=== PATIENT | male | born 1965 | race Caucasian/White ===

== ENCOUNTER → 2016-08-09 | Outpatient (CLI) | payer OTHER ==
[~2016-08-09] MED LIST: ASCA500 PO; CLRD24 PO; HYDR12.55 PO; LISI-461 PO; MULT-513 PO; POTA8CAP6 PO; ZINC1CAP PO
--- NOTE | 2016-08-09 12:55 | DIAGNOSTIC IMAGING REPORT ---
CHEST 2 VIEWS ROUTINE CLINICAL HISTORY: Sinus infection. Cough. COMPARISON STUDY: No previous studies for comparison. FINDINGS: Lung volumes are normal. No consolidation is identified. There is no pneumothorax or pleural effusion. Cardiac size is normal. Mediastinal contours are normal. There is no evidence of pulmonary edema. IMPRESSION: No acute cardiopulmonary findings. Electronically signed by: Jerome Mohan M.D. 08/09/2016 12:54 PM Dictated Date/Time: 08/09/2016 12:54 PM
== END | disposition home or self-care (01) ==
LOC: C.RAD 12:23
PROVIDERS: ATTEND Family Medicine
DX: R05 Cough (principal)

== ENCOUNTER → 2016-10-16 | Outpatient (CLI) | payer OTHER ==
[~2016-10-16] MED LIST changes: +GADAVIST IV PRN
--- NOTE | 2016-10-16 14:57 | DIAGNOSTIC IMAGING REPORT ---
Brain and internal auditory canal MRI WITH AND WITHOUT CONTRAST HISTORY: Headache,SENSORY NEURAL HEARING LOSS TECHNIQUE: Multiplanar multisequence MRI of the brain and internal auditory canal was performed both before and after the intravenous administration of contrast. COMPARISON STUDY: Head CT 07/06/2016. FINDINGS: There are no areas of restricted diffusion to suggest acute infarction. The midline structures are intact. The paranasal sinuses are clear. The mastoid air cells are clear. The ventricles and sulci are within normal limits for age. There is no hematoma or midline shift. The major vascular flow-voids at the skull base are well maintained. No abnormal enhancement within the brain parenchyma. No masses or abnormal enhancement within the left internal auditory canal. There is a 3 mm enhancing nodule deep within the right internal auditory canal. IMPRESSION: 1. No acute intracranial abnormality. 2. A 3 mm enhancing nodule deep within the right internal auditory canal. This is consistent with a vestibular schwannoma. 4. Normal left internal auditory canal. Electronically signed by: Ryne Ceja M.D. 10/16/2016 2:55 PM Dictated Date/Time: 10/16/2016 2:44 PM
== END | disposition home or self-care (01) ==
LOC: C.OPENMRI 12:16
PROVIDERS: ATTEND Physician Assistant Medical
DX: R51 Headache (principal); H90.5 Unspecified sensorineural hearing loss

== ENCOUNTER → 2017-05-04 | Outpatient (CLI) | payer OTHER ==
--- NOTE | 2017-05-04 13:23 | DIAGNOSTIC IMAGING REPORT ---
Brain MRI WITH AND WITHOUT CONTRAST HISTORY: IAC, ACOUSTIC NEUROMA TECHNIQUE: Multiplanar multisequence MRI of the brain was performed both before and after the intravenous administration of contrast. COMPARISON STUDY: Brain MRI 10/16/2016. FINDINGS: There are no areas of restricted diffusion to suggest acute infarction. The midline structures are intact. The paranasal sinuses are clear. The mastoid air cells are clear. The ventricles and sulci are within normal limits for age. There is no hematoma or midline shift. The major vascular flow-voids at the skull base are well maintained. No abnormal enhancement within the brain parenchyma. No masses or abnormal enhancement within the left internal auditory canal. There is a 3 mm enhancing nodule deep within the right internal auditory canal. IMPRESSION: 1. No acute intracranial abnormality. 2. A 3 mm enhancing nodule deep within the right internal auditory canal. This is consistent with a vestibular schwannoma and remains unchanged. 4. Normal left internal auditory canal. Electronically signed by: Ryne Ceja M.D. 05/04/2017 1:22 PM Dictated Date/Time: 05/04/2017 1:19 PM
== END | disposition home or self-care (01) ==
LOC: C.MRIBC 11:24
PROVIDERS: ATTEND Otolaryngology
DX: D33.3 Benign neoplasm of cranial nerves (principal)

== ENCOUNTER 2017-09-08 12:31 | Emergency (ER) | payer OTHER ==
[~2017-09-08] VITALS: Ht 190.5 cm; Wt 133.9 kg
[~2017-09-08 12:31] MED LIST changes: -GADAVIST IV PRN
[2017-09-08 12:40] VITALS: Ht 190.5 cm; Wt 133.9 kg
--- NOTE | 2017-09-08 13:05 | DIAGNOSTIC IMAGING REPORT ---
L HAND MIN 3 VIEWS ROUTINE CLINICAL HISTORY: L ring finger pain and swelling pain. Edema. COMPARISON: None. DISCUSSION: Oblique fracture base fourth metacarpal. Dislocation fourth proximal interphalangeal joint. Metallic pellet ventral to the third metacarpal. Moderate degenerative change of all remaining osseous structures. Moderate soft tissue edema. IMPRESSION: 1. Oblique slightly distracted fracture base fourth metacarpal. 2. Dislocation proximal interphalangeal joint fourth finger. 3. Metallic pellet within the soft tissues ventral to the third metacarpal. The above report was generated using voice recognition software. It may contain grammatical, syntax or spelling errors. Electronically signed by: Heri Beltran M.D. 09/08/2017 1:04 PM Dictated Date/Time: 09/08/2017 1:02 PM
[2017-09-08] MEDS ORDERED: GLUCTAB18 PO (13:09)
[2017-09-08] MEDS ORDERED: XYLOCAINE 1%/SOD BICARB 20 ML VIAL INFIL ONE (13:15)
--- NOTE | 2017-09-08 13:25 | EMERGENCY ROOM VISIT NOTE ---
ED Visit Note Patient was seen and evaluated by Zacarias Moy PA-C. I was asked to reduce his a left fourth digit PIP dislocation with digital block anesthetization. Risks and benefits of performing anesthetization and dislocation reduction discussed with the patient who verbalizes understanding. Verbal consent was obtained prior to performing the procedure. 5 cc of 1% buffered lidocaine was used to anesthetize the left third digit via digital block technique after thorough cleansing with Betadine. Left fourth digit was then reduced without difficulty. Patient tolerated the procedure well. No complications were met. Please refer to for the documentation by Zacarias regarding his stay.
--- NOTE | 2017-09-08 14:01 | DIAGNOSTIC IMAGING REPORT ---
L HAND MIN 3 VIEWS ROUTINE CLINICAL HISTORY: L PIP jt post reduction COMPARISON: Same date DISCUSSION: Anatomic alignment status post closed reduction of the proximal interphalangeal joint fourth finger. Tiny avulsion from the base of the middle phalanx. Moderate soft tissue edematous change. Slight increase in impaction of an oblique fracture proximal fourth metacarpal. Metallic pellet Within the soft tissues is again noted. 1. IMPRESSION: 1. Anatomic alignment post closed reduction proximal interphalangeal joint left fourth finger. 2. Tiny avulsion base middle phalanx left fourth finger. 3. Slight increase in impaction fracture base first metacarpal. The above report was generated using voice recognition software. It may contain grammatical, syntax or spelling errors. Electronically signed by: Heri Beltran M.D. 09/08/2017 2:00 PM Dictated Date/Time: 09/08/2017 1:58 PM
[2017-09-08] MEDS ORDERED: HYDR-5688 PO (14:10)
[2017-09-08 14:33] VITALS: BP 155/77; PULSE 81; TEMP 37; O2SAT 95
--- NOTE | 2017-09-09 10:25 | EMERGENCY ROOM VISIT NOTE ---
ED Visit Note First contact with patient: 12:34 Chief Complaint: Left ring finger pain. History of Present Illness: Mr. Szymanski is a 52-year-old white male who ambulates into the ED complaining of left ring finger pain. Patient reports approximately 1-2 hours before he arrived in the emergency department he was working around his house cutting down tree limbs. He reports one of the tree limb started falling towards him and he pushed it away with his left hand injuring the ring finger. Currently he is complaining of pain over the ring finger DIP joint and the metacarpal. He describes his pain as a sharp and achy sensation in both locations. He rates his discomfort 9/10. Pain is nonradiating. Pain worsens with palpation and flexion and extension of the ring finger at the DIP joint. He has taken 600 mg of ibuprofen prior to arrival at the hospital and reports significant increase improvement of his pain. He denies any associated symptoms including forearm pain, wrist pain, other finger pain, hand weakness/numbness/tingling. Additionally he denies any previous significant injuries or surgeries to the hand or fingers. Review of Systems: As noted above in history of present illness. Past Medical History: Hypertension. Current Medications: Zinc sulfate, vitamin C, Claritin-D, Zestril, hydrochlorothiazide, potassium chloride and glucosamine/chondroitin. Allergies to Medications: Penicillin. Social History: Patient is currently employed; he feels safe in his home environment; he denies tobacco and alcohol use. Physical Examination: Vital Signs: Date Time Temp Pulse Resp B/P (MAP) Pulse Ox O2 Delivery O2 Flow Rate FiO2 09/08/17 14:33 37.0 81 20 155/77 95 09/08/17 14:20 81 20 155/77 95 Room Air 09/08/17 12:40 37.0 79 20 172/77 95 Room Air GENERAL: 52-year-old male in mild distress due to pain, nontoxic-appearing, afebrile and hemodynamically stable. NEUROLOGICAL: Awake, alert and oriented to person, place and time. Answering questions appropriately and following commands. SKIN: Warm, dry and pink. No soft tissue open trauma noted. LEFT HAND: Deformity at the fourth DIP joint with mild swelling and ecchymosis. No tenderness in the forearm, wrist. Moderate tenderness with bony crepitus at the fourth metacarpal. No gross bony deformity. Dislocation of the PIP joint of the fourth finger. No other hand or finger pain. Throughout the ring finger the skin was warm and pink, capillary refill is brisk and he had intact light sensation to all aspects of the ring finger. ED Course: Patient is assessed as noted above. Patient's medication list was reviewed. Patient was offered pain medication and refused. Left hand x-rays: Were read by myself and the radiologist showing a an oblique slightly distracted fracture of the base of the fourth metacarpal, dislocation of the PIP joint of the fourth finger and a metallic pellet in the soft tissues in the area of the third metacarpal; I did question the patient about the foreign body and he knew about that from a previous injury. Patient's dislocation was reduced by Brock Villarreal PA-C; please see his notes on this reduction. Left Hand X-Rays: Were read by myself and the radiologist and shows anatomic alignment post reduction of the PIP joint with a tiny avulsion at the base of the middle phalanx of the fourth finger and a slight increase in impaction fracture at the base of the fifth metacarpal. Patient's hand was placed in a ulnar gutter splint to stabilize his fracture and previous dislocation. Patient was educated about today's findings and instructed on his treatment plan ; he verbalized understanding and agreement with this plan. Clinical Impression: Fracture of the left fourth metacarpal. Left ring finger PIP joint dislocation. Disposition: Patient discharged to home in stable condition; prior to departure he was reassessed and subjectively reported he was feeling better and rated his discomfort 6/10. Plan: Comfort measures were discussed with the patient including a sliding pain medication scale of ibuprofen, acetaminophen and Rover; his name was checked in the state database and no red flags were noted and he was given appropriate narcotics. Other comfort measures including ice use, splint use were discussed with the patient. Patient was encouraged to follow-up with customer care specialist for definitive care and treatment. Patient is encouraged to return the ED for worsening/uncontrolled pain, uncontrolled swelling, hands/finger weakness/numbness/tingling or any new/ concerning symptoms.
== END 2017-09-08 14:34 | disposition home or self-care (01) ==
LOC: C.EDB 12:32 → C.EDD 14:34
DX: S62.315A Displaced fracture of base of fourth metacarpal bone, left hand, initial encounter for closed fracture (principal); S63.285A Dislocation of proximal interphalangeal joint of left ring finger, initial encounter; W22.8XXA Striking against or struck by other objects, initial encounter; Y92.017 Garden or yard in single-family (private) house as the place of occurrence of the external cause; I10 Essential (primary) hypertension; Z79.899 Other long term (current) drug therapy; Z88.0 Allergy status to penicillin

== ENCOUNTER 2022-12-20 10:59 | Observation (INO) ==
--- NOTE | 2022-12-20 11:18 | Emergency Department Note ---
History of Present Illness General Chief complaint: Abnormal Labs/Diagnostic Testing Stated complaint: SWEATING,DOC REF,ABNORMAL EKG Time Seen by Provider: 12/20/22 11:07 History of Present Illness Maximum Pain Intensity: 4 This is a 57-year-old male with a history of atrial fibrillation currently anticoagulated on Xarelto that presents to the emergency department via private vehicle with complaints of "sweating, Referred, abnormal EKG". Patient notes that last Sunday, about 5 days ago he thought perhaps he had shingles. He went to be evaluated by his PCP at the [facility] in [place]. He notes that he was informed it was not shingles. Patient notes the rash was bilateral on the flanks and just inferior to the axilla. Patient then noted that was followed by feeling unwell, headache, backaches, pain in the ribs where the rash was located. He feels as though he has not been sleeping well even though he has. He feels as though he has some sort of "bug". Patient notes that the pain and rash has resolved. He did present to an urgent care today and had an ab normal EKG and was referred here for further evaluation and management. He denies any chest pain or shortness of breath. No nausea or vomiting. No diarrhea. Patient denies any change of symptoms with exertion. Patient however notes that every morning since the onset about a week ago he notes that he is sweating through his work short by 9 AM every day which is new for him. He denies any fever. No trauma or injury. Home Medications Medication Instructions Recorded Confirmed Type Zinc Tab 30 mg PO DAILY 12/20/22 12/20/22 History ascorbic acid (vitamin C) 100 mg 200 mg PO DAILY 12/20/22 12/20/22 History tablet (Vitamin C) calcium carbonate 500 mg-vitamin 1 tab PO DAILY 12/20/22 12/20/22 History D3 5 mcg (200 unit) tablet (Calcium 500 + D) furosemide 20 mg tablet 40 mg PO DAILY 12/20/22 12/20/22 History glucosamine-chondroitin 250 mg-200 1 tab PO HS 12/20/22 12/20/22 History mg tablet (Osteo Bi-Flex) lisinopril 20 mg tablet 20 mg PO DAILY 12/20/22 12/20/22 History loratadine 10 mg tablet (Claritin) 10 mg PO DAILY PRN .allergies 12/20/22 12/20/22 History potassium 99 mg tablet 99 mg PO AMHS 12/20/22 12/20/22 History rivaroxaban 20 mg tablet (Xarelto) 20 mg PO DAILY 12/20/22 12/20/22 History sotalol 120 mg tablet 120 mg PO BID 12/20/22 12/20/22 History spironolactone 25 mg tablet 25 mg PO QAM 12/20/22 12/20/22 History vitamin B complex 1 tab PO DAILY 12/20/22 12/20/22 History vitamin E 268 mg (400 unit) capsule 400 mg PO DAILY 12/20/22 12/20/22 History Allergies Allergy/AdvReac Type Severity Reaction Status Date / Time Penicillins AdvReac Mild URINARY Verified 12/20/22 13:38 RETENTION/CONSTIPATION cefdinir AdvReac Diarrhea Verified 12/20/22 13:38 Past Med/Surg History Medical History Atrial fibrillation Hypertension Nonischemic cardiomyopathy Sensorineural hearing loss of both ears Surgical History H/O abdominal surgery H/O arthroscopy of right knee Family History Other Cancer Diabetes Social History Smoking Status: Never smoker Second Hand Exposure: No; Do You Dip or Chew Tobacco: No; Tobacco Cessation Education Requested by Patient: No Hx Alcohol Use: No Hx Substance Use: No Preferred Language: Luxembourgish Communication Ability: Effective 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 Required: No Beliefs That Will Affect Care: None Current Living Situation: Alone 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 Other Information That Helps Us Care for You: No Feels Safe at Home: Yes Safety Concerns: Feels Safe At This Time Assistive Devices: None Review of Systems A total of 10 systems reviewed and were otherwise negative Physical Exam Vital Signs Vital Signs - 24 hr 12/20/22 11:00 12/20/22 12:12 12/20/22 12:05 Temperature 36.6 C Temperature Source Temporal Artery Scan Pulse Rate 76 Pulse Rate [Apical] 138 H 113 H Pulse Rhythm [Apical] Regular Regular Respiratory Rate 20 18 18 Respiratory Effort / Characteristics Non-Labored Non-Labored Spontaneous Non-Labored Spontaneous Respiratory Depth Normal Normal Normal Respiratory Pattern Regular Blood Pressure 130/75 Blood Pressure [Right Arm] 125/96 Blood Pressure Mean 93 Blood Pressure Mean [Right Arm] 105 Blood Pressure Position [Right Arm] Lying Pulse Oximetry 99 98 98 Oxygen Delivery Method Room Air Room Air Room Air Sepsis Recent Fever Within 48 Hours No Sepsis New/Unexplained Change in Mental Status No Sepsis Action Taken by Nursing No Action Required End Tidal CO2 (18-54mmHg) 12/20/22 12:32 12/20/22 12:41 12/20/22 13:33 Temperature Temperature Source Pulse Rate 86 Pulse Rate [Apical] 115 H Pulse Rhythm [Apical] Regular Respiratory Rate 18 Respiratory Effort / Characteristics Non-Labored Spontaneous Respiratory Depth Normal Respiratory Pattern Regular Blood Pressure Blood Pressure [Right Arm] 121/80 Blood Pressure Mean Blood Pressure Mean [Right Arm] 93 Blood Pressure Position [Right Arm] Lying Pulse Oximetry 99 Oxygen Delivery Method Room Air Room Air Sepsis Recent Fever Within 48 Hours Sepsis New/Unexplained Change in Mental Status Sepsis Action Taken by Nursing End Tidal CO2 (18-54mmHg) 12/20/22 15:12 12/20/22 15:15 12/20/22 15:20 Temperature Temperature Source Pulse Rate Pulse Rate [Apical] 127 H 130 H 6 L Pulse Rhythm [Apical] Respiratory Rate 18 18 16 Respiratory Effort / Characteristics Respiratory Depth Respiratory Pattern Blood Pressure Blood Pressure [Right Arm] 140/78 129/68 114/67 Blood Pressure Mean Blood Pressure Mean [Right Arm] 98 88 82 Blood Pressure Position [Right Arm] Pulse Oximetry 96 98 99 Oxygen Delivery Method Room Air Room Air Room Air Sepsis Recent Fever Within 48 Hours Sepsis New/Unexplained Change in Mental Status Sepsis Action Taken by Nursing End Tidal CO2 (18-54mmHg) 12/20/22 15:25 12/20/22 15:30 12/20/22 15:40 Temperature Temperature Source Pulse Rate Pulse Rate [Apical] 69 67 69 Pulse Rhythm [Apical] Respiratory Rate 18 18 20 Respiratory Effort / Characteristics Non-Labored Non-Labored Respiratory Depth Normal Normal Respiratory Pattern Blood Pressure Blood Pressure [Right Arm] 111/63 114/73 110/64 Blood Pressure Mean Blood Pressure Mean [Right Arm] 79 86 79 Blood Pressure Position [Right Arm] Pulse Oximetry 96 98 95 Oxygen Delivery Method Room Air Room Air Room Air Sepsis Recent Fever Within 48 Hours Sepsis New/Unexplained Change in Mental Status Sepsis Action Taken by Nursing End Tidal CO2 (18-54mmHg) 28 29 12/20/22 15:45 12/20/22 16:00 12/20/22 15:29 Temperature Temperature Source Pulse Rate 68 Pulse Rate [Apical] 68 69 Pulse Rhythm [Apical] Respiratory Rate 17 18 Respiratory Effort / Characteristics Non-Labored Respiratory Depth Normal Respiratory Pattern Blood Pressure Blood Pressure [Right Arm] 111/67 123/75 Blood Pressure Mean Blood Pressure Mean [Right Arm] 81 91 Blood Pressure Position [Right Arm] Pulse Oximetry 96 97 Oxygen Delivery Method Room Air Room Air Sepsis Recent Fever Within 48 Hours Sepsis New/Unexplained Change in Mental Status Sepsis Action Taken by Nursing End Tidal CO2 (18-54mmHg) VITAL SIGNS - Vital signs and nursing notes were reviewed. Stable and afebrile. GENERAL -57-year-old male appearing his stated age who is in no acute distress. Communicates well with provider and answers questions appropriately. SKIN - Without rashes. No meningeal or petechial rash. HEAD - NC/AT. EYES - PERRL with EOMI bilaterally. Sclera anicteric. EARS - No deformities of external structures noted on gross examination bilaterally. NOSE - Midline and without cyanosis. No epistaxis or purulent drainage noted. Septum midline without deviation or septal hematoma noted. MOUTH/OROPHARYNX - Without perioral cyanosis. Buccal mucosa pink and moist and without leukoplakia. Tongue midline with equal elevation of palate bilaterally. No tonsillar hypertrophy, erythema, or exudates noted. Good dentition noted. NECK - Neck with FROM. Supple to palpation. No lymphadenopathy noted. No nuchal rigidity. LUNGS - Chest wall symmetric without accessory muscle use, intercostals retractions, or central cyanosis. Normal vesicular breath sounds CTA B/L. No wheezes, rales, or rhonchi appreciated. CARDIAC - RRR with S1/S2. No murmur, rubs, or gallops appreciated. ABDOMEN - Abdominal contour normal without pulsations or visible masses. BS normoactive all four quadrants. No tenderness, palpable masses, hepatosplenomegaly, or ascites noted. EXTREMITIES - No clubbing or peripheral cyanosis. +5/5 strength noted in UE/LE bilaterally. NEUROLOGIC - Cranial nerves II through XII grossly intact. PSYCH - A&Ox3 and cooperates fully with examiner. Pt is very pleasant and interacts well with examiner. Course Administered Medications Sotalol HCl (Sotalol Hcl 80 Mg Tab) 120 mg PO BID VALERIA Stop: 01/19/23 20:59 Last Admin: 12/20/22 19:46 Dose: 120 mg Documented By: TNK Discontinued Medications Diltiazem HCl (Diltiazem Hcl 5 Mg/Ml 5 Ml Vial) Confirm Administered Dose 25 mg IV .STK-MED ONE Stop: 12/20/22 12:09 Last Admin: 12/20/22 12:17 Dose: Not Given Documented By: RAÚL Diltiazem HCl (Diltiazem Hcl 5 Mg/Ml 5 Ml Vial) 20 mg IV NOW STA Stop: 12/20/22 12:11 Last Admin: 12/20/22 12:16 Dose: 20 mg Documented By: RAÚL Co-signed By: LAURA Diltiazem HCl 125 mg/ Dextrose 125 mls @ 5 mls/hr IV .Q24H [facility]; Protocol Stop: 01/19/23 12:14 Last Admin: 12/20/22 15:30 Dose: Not Given Documented By: BRIA Propofol (Diprivan) 7 mls @ 7 mls/min IV NOW STA Stop: 12/20/22 15:23 Last Admin: 12/20/22 15:13 Dose: 7 mls/min Documented By: MARLINE Co-signed By: RJ Miscellaneous (Stat Iv Infusion Titration Per Protocol) 1 each N/A NOW STA Stop: 12/20/22 12:13 Last Admin: 12/20/22 15:30 Dose: Not Given Documented By: BRIA Propofol (Propofol Iv Emulsion 10 Mg/Ml 20 Ml Vial) Confirm Administered Dose 400 mg IV .STK-MED ONE Stop: 12/20/22 15:00 Last Admin: 12/20/22 16:40 Dose: Not Given Documented By: KENDALL Medical Decision Making Laboratory Data 12/20/22 11:53 12/20/22 11:53 Lab Results 12/20/22 12/20/22 12/20/22 Range/Units 11:53 11:53 11:53 WBC 5.17 (4.8-10.8) K/ul RBC 5.09 (4.70-6.10) M/uL Hgb 14.0 (14.0-18.0) g/dl Hct 41.2 L (42.0-52.0) % MCV 80.9 (80.0-100.0) fL MCH 27.5 (25.0-34.0) pg MCHC 34.0 (32.0-36.0) g/dL RDW Std Deviation 36.9 (36.4-46.3) fL RDW Coeff of Vijay 12.5 (11.5-14.5) % Plt Count 137 (130-400) K/uL MPV 12.3 (9.4-12.4) fL Neutrophils % (Manual) 52 % Lymphocytes % (Manual) 26 % Reactive Lymphs % (Man) 16 % Monocytes % (Manual) 1 % Eosinophils % (Manual) 3 % Basophils % (Manual) 2 % Metamyelocytes % (Man) 1 % Neutrophils # (Manual) 2.69 (1.40-6.50) K/uL Total Absolute Neuts 2.69 (1.4-6.5) K/uL Lymphocytes # (Manual) 1.34 (1.2-3.4) K/uL Reactive Lymphs # 0.83 K/uL Total Abs Lymphocytes 2.17 (1.2-3.4) K/uL Monocytes # (Manual) 0.05 L (0.11-0.59) K/uL Eosinophils # (Manual) 0.16 (0-0.50) K/uL Basophils # (Manual) 0.10 (0-0.2) K/uL Metamyelocytes # (Man) 0.05 H (0-0) K/uL Ovalocytes 1+ PT (9.0-12.0) Seconds INR (0.9-1.1) APTT (21.0-31.0) Seconds PTT Ratio Sodium (136-145) mmol/L Potassium (3.5-5.1) mmol/L Chloride (98-107) mmol/L Carbon Dioxide (21-32) mmol/L Anion Gap (3-11) BUN (6-23) mg/dl Creatinine (0.6-1.4) mg/dl Est Cr Clr Drug Dosing ml/min Est GFR ( Amer) ml/min Est GFR (Non-Af Amer) ml/min BUN/Creatinine Ratio (10-20) Glucose (70-99(Fasting)) mg/dl Lactate 1.4 (0.4-2.0) mmol/L Calcium (8.6-10.3) mg/dl Magnesium (1.7-2.4) mg/dl Total Bilirubin (0.2-1.0) mg/dl AST (13-39) U/L ALT (7-52) U/L Alkaline Phosphatase (34-104) U/L Troponin I High Sens (0-20) pg/ml Total Protein (6.0-8.3) gm/dl Albumin (3.4-5.0) gm/dl Globulin (2.5-4.0) gm/dl Albumin/Globulin Ratio (0.9-2) Procalcitonin 0.07 (0-0.5) ng/ml TSH (0.300-4.500) uIu/ml Anaplasma Smear See Comment Babesia Smear See Comment Lyme Disease IgG Ab Negative (Negative) Lyme Disease IgM Ab Equivocal A (Negative) SARS-CoV-2, RNA, NAAT (NEGATIVE) 12/20/22 12/20/22 12/20/22 Range/Units 11:53 11:53 11:53 WBC (4.8-10.8) K/ul RBC (4.70-6.10) M/uL Hgb (14.0-18.0) g/dl Hct (42.0-52.0) % MCV (80.0-100.0) fL MCH (25.0-34.0) pg MCHC (32.0-36.0) g/dL RDW Std Deviation (36.4-46.3) fL RDW Coeff of Vijay (11.5-14.5) % Plt Count (130-400) K/uL MPV (9.4-12.4) fL Neutrophils % (Manual) % Lymphocytes % (Manual) % Reactive Lymphs % (Man) % Monocytes % (Manual) % Eosinophils % (Manual) % Basophils % (Manual) % Metamyelocytes % (Man) % Neutrophils # (Manual) (1.40-6.50) K/uL Total Absolute Neuts (1.4-6.5) K/uL Lymphocytes # (Manual) (1.2-3.4) K/uL Reactive Lymphs # K/uL Total Abs Lymphocytes (1.2-3.4) K/uL Monocytes # (Manual) (0.11-0.59) K/uL Eosinophils # (Manual) (0-0.50) K/uL Basophils # (Manual) (0-0.2) K/uL Metamyelocytes # (Man) (0-0) K/uL Ovalocytes PT 13.9 H (9.0-12.0) Seconds INR 1.3 H (0.9-1.1) APTT 29.9 (21.0-31.0) Seconds PTT Ratio 1.1 Sodium 137 (136-145) mmol/L Potassium 3.7 (3.5-5.1) mmol/L Chloride 105 (98-107) mmol/L Carbon Dioxide 25 (21-32) mmol/L Anion Gap 7 (3-11) BUN 22 (6-23) mg/dl Creatinine 0.77 (0.6-1.4) mg/dl Est Cr Clr Drug Dosing 147.3 ml/min Est GFR ( Amer) 118.4 ml/min Est GFR (Non-Af Amer) 102.2 ml/min BUN/Creatinine Ratio 28.6 H (10-20) Glucose 103 H (70-99(Fasting)) mg/dl Lactate (0.4-2.0) mmol/L Calcium 8.9 (8.6-10.3) mg/dl Magnesium 2.0 (1.7-2.4) mg/dl Total Bilirubin 0.8 (0.2-1.0) mg/dl AST 38 (13-39) U/L ALT 47 (7-52) U/L Alkaline Phosphatase 44 (34-104) U/L Troponin I High Sens 19.1 (0-20) pg/ml Total Protein 6.4 (6.0-8.3) gm/dl Albumin 3.7 (3.4-5.0) gm/dl Globulin 2.7 (2.5-4.0) gm/dl Albumin/Globulin Ratio 1.4 (0.9-2) Procalcitonin (0-0.5) ng/ml TSH 0.767 (0.300-4.500) uIu/ml Anaplasma Smear Babesia Smear Lyme Disease IgG Ab (Negative) Lyme Disease IgM Ab (Negative) SARS-CoV-2, RNA, NAAT (NEGATIVE) 12/20/22 Range/Units 13:32 WBC (4.8-10.8) K/ul RBC (4.70-6.10) M/uL Hgb (14.0-18.0) g/dl Hct (42.0-52.0) % MCV (80.0-100.0) fL MCH (25.0-34.0) pg MCHC (32.0-36.0) g/dL RDW Std Deviation (36.4-46.3) fL RDW Coeff of Ivjay (11.5-14.5) % Plt Count (130-400) K/uL MPV (9.4-12.4) fL Neutrophils % (Manual) % Lymphocytes % (Manual) % Reactive Lymphs % (Man) % Monocytes % (Manual) % Eosinophils % (Manual) % Basophils % (Manual) % Metamyelocytes % (Man) % Neutrophils # (Manual) (1.40-6.50) K/uL Total Absolute Neuts (1.4-6.5) K/uL Lymphocytes # (Manual) (1.2-3.4) K/uL Reactive Lymphs # K/uL Total Abs Lymphocytes (1.2-3.4) K/uL Monocytes # (Manual) (0.11-0.59) K/uL Eosinophils # (Manual) (0-0.50) K/uL Basophils # (Manual) (0-0.2) K/uL Metamyelocytes # (Man) (0-0) K/uL Ovalocytes PT (9.0-12.0) Seconds INR (0.9-1.1) APTT (21.0-31.0) Seconds PTT Ratio Sodium (136-145) mmol/L Potassium (3.5-5.1) mmol/L Chloride (98-107) mmol/L Carbon Dioxide (21-32) mmol/L Anion Gap (3-11) BUN (6-23) mg/dl Creatinine (0.6-1.4) mg/dl Est Cr Clr Drug Dosing ml/min Est GFR ( Amer) ml/min Est GFR (Non-Af Amer) ml/min BUN/Creatinine Ratio (10-20) Glucose (70-99(Fasting)) mg/dl Lactate (0.4-2.0) mmol/L Calcium (8.6-10.3) mg/dl Magnesium (1.7-2.4) mg/dl Total Bilirubin (0.2-1.0) mg/dl AST (13-39) U/L ALT (7-52) U/L Alkaline Phosphatase (34-104) U/L Troponin I High Sens (0-20) pg/ml Total Protein (6.0-8.3) gm/dl Albumin (3.4-5.0) gm/dl Globulin (2.5-4.0) gm/dl Albumin/Globulin Ratio (0.9-2) Procalcitonin (0-0.5) ng/ml TSH (0.300-4.500) uIu/ml Anaplasma Smear Babesia Smear Lyme Disease IgG Ab (Negative) Lyme Disease IgM Ab (Negative) SARS-CoV-2, RNA, NAAT NEGATIVE (NEGATIVE) Imaging Data Radiologist's Impression: Chest X-Ray 12/20/22 11:10 SINGLE VIEW CHEST CLINICAL HISTORY: Headache. Diaphoresis. Atypical chest pain. Back pain. FINDINGS: 2 AP, portable, upright chest radiographs are compared to study dated 08/09/2016. The heart is enlarged. The pulmonary vasculature is noncongested. The lungs and pleural spaces are clear noting mild dependent atelectasis. No pneumothorax is seen. The bony thorax is grossly intact. IMPRESSION: Cardiomegaly with no acute cardiopulmonary abnormality. ACT 112: Negative or not required by law. Electronically signed by: Hal Wolf M.D. 12/20/2022 11:37 AM [facility] Narrative Patient was seen and evaluated as above in room A03. Review was performed of triage nursing notes and vital signs. After obtaining a thorough history and physical examination the above work up was performed. Patient presents to us today for evaluation of diaphoresis and abnormal EKG prehospital. Patient clinically well-appearing and nontoxic on examination but was found to be ta chycardic. Options of care were discussed with the patient. IV access was established. Labs were drawn. EKG was obtained. Initial EKG performed at 12:13 PM revealed A-fib with RVR at a rate of 103 bpm. Patient's heart rate then began to trend upward and was in the 130-140 range. I discussed the case with attending physician that presented to the bedside. Decision was made to provide 20 mg of IV Cardizem. Heart rate began to improve and was no longer at such an elevated rate. Chest x-ray reveals cardiomegaly. Labs reveal no leukocytosis or concerning anemia. No emergent metabolic disturbance. Troponin within normal range. INR elevated 1.3. Glucose mildly elevated at 103. Procalcitonin within normal range. TSH reveals euthyroid state. Urinalysis reveals some ketones but no evidence of infection. Lyme IgM equivocal with Western blot pending. Anaplasma smear negative. Anaplasma send out test pending. COVID test negative. With the patient having diaphoresis as well as back pain, neck/head pain I do believe that further evaluation in the hospital is reasonable. Alth ough certainly A-fib with RVR could be causing much of his symptoms there are still some pending tests at this time. Cardiology was able to see the patient while here in the ED and recommended cardioversion. This could potentially help prevent the patient from requiring admission. The patient did undergo cardioversion here in the ED with cardiology and plan initially was to discharge as patient was overall doing very well however in discussion with the patient as well as family friends at bedside preference would be to proceed with inpatient management. I believe this is reasonable and I again contacted the hospitalist service. Please refer to further documentation regarding his stay. Case was discussed with the attending physician. Repeat EKG performed at 1624 and reveals sinus rhythm with occasional PVCs at a rate of 65 bpm. QTc 478. QRS 92. No ST elevation. GCS: 15 In the evaluation and treatment of this patient the following differential diagnoses were entertained: MS, PE, pericarditis, costochondritis, A-fib with RVR, tickborne illness, among others. Impression & Plan Atrial fibrillation with RVR, Diaphoresis Discharge Plan Visit Data Chief Complaint: Abnormal Labs/Diagnostic Testing Stated Complaint: SWEATING,DOC REF,ABNORMAL EKG ED Provider: Sin Rosa ED Midlevel Provider: Brock Villarreal Discharge Problem: Atrial fibrillation with RVR, Diaphoresis Patient Disposition: Home - Self-Care Condition: Good Discharge Instructions Interventions: ED Discharge Assessment Last Done: 12/20/22 18:33
--- NOTE | 2022-12-20 11:38 | XRay Report ---
SINGLE VIEW CHEST CLINICAL HISTORY: Headache. Diaphoresis. Atypical chest pain. Back pain. FINDINGS: 2 AP, portable, upright chest radiographs are compared to study dated 08/09/2016. The heart is enlarged. The pulmonary vasculature is noncongested. The lungs and pleural spaces are clear notin g mild dependent atelectasis. No pneumothorax is seen. The bony thorax is grossly intact. IMPRESSION: Cardiomegaly with no acute cardiopulmonary abnormality. ACT 112: Negative or not required by law. Electronically signed by: Hal Wlof M.D. 12/20/2022 11:37 AM
[2022-12-20] MEDS ORDERED: dilTIAZem HCl 5 MG/ML 5 ML VIAL IV ONE (12:08)
[2022-12-20] MEDS ORDERED: dilTIAZem HCl 5 MG/ML 5 ML VIAL IV STA (12:10)
[2022-12-20] MEDS ORDERED: STAT IV Infusion **Titration per Protocol STA (12:12)
[2022-12-20] MEDS ORDERED: dilTIAZem HCL 125 MG in DEXTROSE 5% 100 ML IV SCH (12:15)
[2022-12-20 12:32] LABS: Hematocrit (blood only) 41.2 % (42.0-52.0); Mean Corpuscular Hemoglobin 27.5 pg (25.0-34.0); Mean Corpuscular Volume 80.9 fL (80.0-100.0); Mean Platelet Volume 12.3 fL (9.4-12.4); Platelet Count 137 K/uL (130-400); RDW Coefficient of Variation 12.5 % (11.5-14.5); RDW Standard Deviation 36.9 fL (36.4-46.3); Red Blood Count 5.09 M/uL (4.70-6.10); White Blood Count 5.17 K/ul (4.8-10.8)
[2022-12-20 12:40] LABS: Albumin Globulin Ratio 1.4 (0.9-2); Albumin Level 3.7 gm/dl (3.4-5.0); BUN Creatinine Ratio 28.6 (10-20); Bilirubin,Total 0.8 mg/dl (0.2-1.0); Calcium 8.9 mg/dl (8.6-10.3); Creatinine Clr Calc Pharmacy 147.3 ml/min; Est GFR (African American) 118.4 ml/min; Est GFR (Non-African American) 102.2 ml/min; Globulin 2.7 gm/dl (2.5-4.0); Potassium 3.7 mmol/L (3.5-5.1); Total Protein 6.4 gm/dl (6.0-8.3)
[2022-12-20 12:46] LABS: Troponin I High Sensitivity 19.1 pg/ml (0-20)
[2022-12-20 12:49] LABS: INR 1.3 (0.9-1.1); Partial Thromboplastin Ratio 1.1; Partial Thromboplastin Time 29.9 Seconds (21.0-31.0); Prothrombin Time 13.9 Seconds (9.0-12.0)
[2022-12-20 12:56] LABS: Procalcitonin 0.07 ng/ml (0-0.5)
[2022-12-20 13:02] LABS: Lyme Ab IgG w/WB Rflx Negative (Negative)
[2022-12-20 13:08] LABS: Lyme Ab IgM w/WB Rflx Equivocal (Negative)
--- NOTE | 2022-12-20 13:18 | Electrocardiogram Report ---
Test Reason : Blood Pressure : / mmHG Vent. Rate : 117 BPM Atrial Rate : 000 BPM P-R Int : 000 ms QRS Dur : 088 ms QT Int : 350 ms P-R-T Axes : 000 029 009 degrees QTc Int : 488 ms Atrial fibrillation with rapid ventricular response Abnormal ECG No previous ECGs available Confirmed by Karlos Perry ([id number]) on 12/20/2022 1:18:36 PM Referred By: Confirmed By:Karlos Perry
--- NOTE | 2022-12-20 13:24 | Electrocardiogram Report ---
Test Reason : Blood Pressure : / mmHG Vent. Rate : 103 BPM Atrial Rate : 000 BPM P-R Int : 000 ms QRS Dur : 092 ms QT Int : 370 ms P-R-T Axes : 000 035 018 degrees QTc Int : 484 ms Atrial fibrillation with rapid ventricular response with premature ventricular or aberrantly conducte d complexes Cannot rule out Anterior infarct , age undetermined Abnormal ECG When compared with ECG of 20-DEC-2022 11:39, (unconfirmed) No significant change was found Confirmed by Karlos Perry ([id number]) on 12/20/2022 1:23:50 PM Referred By: REFERRED SELF Confirmed By:Karlos Perry
[2022-12-20 13:43] LABS: ALC (manual) 2.17 K/uL (1.2-3.4); ANC (manual) 2.69 K/uL (1.4-6.5); Basophils % (manual) 2 %; Eosinophils # (manual) 0.16 K/uL (0-0.50); Eosinophils % (manual) 3 %; Lymphocytes # (manual) 1.34 K/uL (1.2-3.4); Lymphocytes % (manual) 26 %; Metamyelocytes # (manual) 0.05 K/uL (0-0); Metamyelocytes % (manual) 1 %; Monocytes # (manual) 0.05 K/uL (0.11-0.59); Monocytes % (manual) 1 %; Neutrophils # (manual) 2.69 K/uL (1.40-6.50); Neutrophils % (manual) 52 %; Ovalocytes 1+; Reactive Lymphocytes # (manual) 0.83 K/uL; Reactive Lymphocytes % (manual) 16 %
--- NOTE | 2022-12-20 14:13 | History & Physical Report ---
Date of Service December 20, 2022 Assessment & Plan (1) Atrial fibrillation with RVR: Plan: Patient is 57-year-old male with PMH atrial fibrillation anticoagulated on Xarelto, history of cardioversion, nonischemic cardiomyopathy with EF 40% on echo 10/2021 with EF 55% on echo 06/15, HTN presented to ER for atrial fibrillation RVR found at [facility] urgent care clinic today. History echo 06/05/22: EF: 55-59%, grade 2 diastolic dysfunction, mild MR Today in ER found to be in atrial fibrillation with rates up to 130s. BP stable. EKG: Atrial fibrillation, rate 117 Patient is asymptomatic from atrial fibrillation. Denies palpitations, chest pain, shortness of breath In ER given diltiazem 20 mg IV. Heart rates remain in the 109 to 120s. Patient still asymptomatic Consulted cardiology, Dr. Lu. Recommends cardioversion In ER patient sedated and cardioversion took place. Patient back in sinus rhythm. Was recommended patient could be discharged home however patient and patient's family uncomfortable, and will observe overnight Monitor on telemetry Continue Xarelto, sotalol (2) Diaphoresis: (3) Abnormal laboratory test: Plan: Reported rash one week ago that resolved. Fatigue several days ago and past couple of days with diaphoresis with activity. Afebrile in ER. No leukocytosis Lyme disease IgM Ab is equivocal, Anaplasma smear and Babesia smear negative Western blot pending, Anaplasma and Babesia PCR pending Blood cultures pending UA pending Will currently monitor Follow-up with PCP has already been made made for December 29, 2022 at [address] Leyva (4) Hypertension: Plan: Continue lisinopril (5) Nonischemic cardiomyopathy: Plan: History nonischemic cardiomyopathy with EF 40% on echo 10/2021 with improved EF 55% on echo 06/15 Appears euvolemic Continue Lasix, spironolactone DVT Prophylaxis On Xarelto Full Code as per discussion with pt Follows with Dr Leyva for routine care Pt was seen and care coordinated with Dr Read. See addendum I spent a total of 79 minutes reviewing notes, outpatient records, labs, medication, coordinating, documenting and providing care for this patient excluding time spent in the performance of separately billed services. History of Present Illness Chief Complaint: Diaphoresis, reported abnormal EKG Primary Care Provider: Lexa Leyva MD Patient is 57-year-old male with PMH atrial fibrillation anticoagulated on Xarelto, history of cardioversion, nonischemic cardiomyopathy with EF 40% on echo 10/2021 with EF 55% on echo 06/15, HTN presented to ER for atrial fibrillation RVR found that [facility] urgent care clinic today. Patient states 1 week ago had erythematous rash bilateral right ribs up to axilla. Patient states rash was not pruritic. He does report bilateral rib pain as well as back pain that day. He states he had a diffuse headache as well. Reports headache, rib and back pain and rash lasted 1 day and resolved. The following days he felt more fatigued which he initially thought was secondary to the heat and weather. Past 3 days he reports diffuse diaphoresis with activity. He states was urged by co-worker to go to urgent care today because of the diaphoresis. He has not been checking his temperature. He denies any sensation of palpitations. Denies chest pain or shortness of breath. Denies any known tick bite. Reports drinking 28 ounces of coffee daily. Denies any other caffeine intake or other OTC medication. Denies alcohol use. Denies ill contacts. Denies N/V/D/C, dizziness, syncope, vision changes, neck pain, CP, SOB, orthopnea, cough, sore throat, otalgia, rhinorrhea, abdominal pain, paresthesias, extremity weakness, extremity edema, other rashes, urinary symptoms. History echo 06/05/22: EF: 55-59%, grade 2 diastolic dysfunction, mild MR Allergies Allergy/AdvReac Type Severity Reaction Status Date / Time Penicillins AdvReac Mild URINARY Verified 12/20/22 13:38 RETENTION/CONSTIPATION cefdinir AdvReac Diarrhea Verified 12/20/22 13:38 Home Medications Medication Instructions Recorded Confirmed Type Zinc Tab 30 mg PO DAILY 12/20/22 12/20/22 History ascorbic acid (vitamin C) 100 mg 200 mg PO DAILY 12/20/22 12/20/22 History tablet (Vitamin C) calcium carbonate 500 mg-vitamin 1 tab PO DAILY 12/20/22 12/20/22 History D3 5 mcg (200 unit) tablet (Calcium 500 + D) furosemide 20 mg tablet 40 mg PO DAILY 12/20/22 12/20/22 History glucosamine-chondroitin 250 mg-200 1 tab PO HS 12/20/22 12/20/22 History mg tablet (Osteo Bi-Flex) lisinopril 20 mg tablet 20 mg PO DAILY 12/20/22 12/20/22 History loratadine 10 mg tablet (Claritin) 10 mg PO DAILY PRN .allergies 12/20/22 12/20/22 History potassium 99 mg tablet 99 mg PO AMHS 12/20/22 12/20/22 History rivaroxaban 20 mg tablet (Xarelto) 20 mg PO DAILY 12/20/22 12/20/22 History sotalol 120 mg tablet 120 mg PO BID 12/20/22 12/20/22 History spironolactone 25 mg tablet 25 mg PO QAM 12/20/22 12/20/22 History vitamin B complex 1 tab PO DAILY 12/20/22 12/20/22 History vitamin E 268 mg (400 unit) capsule 400 mg PO DAILY 12/20/22 12/20/22 History Past Med/Surg History Medical History Atrial fibrillation Hypertension Nonischemic cardiomyopathy Sensorineural hearing loss of both ears Surgical History H/O abdominal surgery H/O arthroscopy of right knee Family History Other Cancer Diabetes Social History Smoking Status: Never smoker Second Hand Exposure: No; Do You Dip or Chew Tobacco: No; Hx Alcohol Use: No Hx Substance Use: No Preferred Language: Tajik Communication Ability: Effective 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 Beliefs That Will Affect Care: None Current Living Situation: Alone 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 Feels Safe at Home: Yes Assistive Devices: None Review of Systems Review of Systems: All systems reviewed & are unremarkable except as noted in HPI & below Physical Exam Physical Exam: General: no distress, WDWN Head: normocephalic, atraumatic Eyes: conjunctiva non-injected, anicteric ENT: normal inspection external ears, nose, mucous membranes moist Neck: supple, trachea midline Lungs: clear, no respiratory distress, no wheezing/rhonchi/rales CV: irregularly irregular, rate 120, no murmur, no pretibial edema Abd: normal BS, soft, non-tender Ext: no cyanosis, no calf tenderness Neuro: A&O x 3, no focal deficits noted, normal affect Skin: warm, dry Results & Data Results & Data Vital Signs (Past 12 Hours) Vital Signs Temp Pulse Pulse Resp BP BP Pulse Ox 12/20/22 13:33 115 H 18 121/80 99 12/20/22 12:41 12/20/22 12:32 86 12/20/22 12:05 113 H 18 98 12/20/22 12:12 138 H 18 125/96 98 12/20/22 11:00 36.6 C 76 20 130/75 99 O2 Del Method 12/20/22 13:33 Room Air 12/20/22 12:41 Room Air 12/20/22 12:32 12/20/22 12:05 Room Air 12/20/22 12:12 Room Air 12/20/22 11:00 Room Air Laboratory Results Short CBC 12/20/22 Range/Units 11:53 WBC 5.17 (4.8-10.8) K/ul Hgb 14.0 (14.0-18.0) g/dl Hct 41.2 L (42.0-52.0) % Plt Count 137 (130-400) K/uL BMP 12/20/22 11:53 Sodium 137 Potassium 3.7 Chloride 105 Carbon Dioxide 25 BUN 22 Creatinine 0.77 Glucose 103 H Calcium 8.9 Liver Function 12/20/22 Range/Units 11:53 Total Bilirubin 0.8 (0.2-1.0) mg/dl AST 38 (13-39) U/L ALT 47 (7-52) U/L Alkaline Phosphatase 44 (34-104) U/L Albumin 3.7 (3.4-5.0) gm/dl Diagnostic Findings Chest X-Ray 12/20/22 11:10 SINGLE VIEW CHEST CLINICAL HISTORY: Headache. Diaphoresis. Atypical chest pain. Back pain. FINDINGS: 2 AP, portable, upright chest radiographs are compared to study dated 08/09/2016. The heart is enlarged. The pulmonary vasculature is noncongested. The lungs and pleural spaces are clear noting mild dependent atelectasis. No pneumothorax is seen. The bony thorax is grossly intact. IMPRESSION: Cardiomegaly with no acute cardiopulmonary abnormality. ACT 112: Negative or not required by law. Electronically signed by: Hal Wolf M.D. 12/20/2022 11:37 AM Supervising Physician Co-Signing Physician Notes Pt was seen and examined. Agreed with Aury MIJARES exam, assessment and plan. 57 year old male with h/o paroxysmal atrial fibrillation on Xarelto presented to the ER with Afid with RVR. He is asymptomatic. status post successful cardioversions by cardiology dr. Lu. Ok from cardiology to discharge from the ED and outpatient follow-up, however family was uncomfortable to discharge patient from the ED and recommended overnight observation. Will monitor closely in tele. Continue current outpatient medications. MD Jacek
[2022-12-20] MEDS ORDERED: PROPOFOL IV EMULSION 10 MG/ML 20 ML VIAL IV ONE (14:59)
--- NOTE | 2022-12-20 15:18 | Emergency Department Note ---
Post Sedation Assessment Vital Signs Temp Pulse Pulse Resp BP BP Pulse Ox 12/20/22 13:33 115 H 18 121/80 99 12/20/22 12:41 12/20/22 12:32 86 12/20/22 12:05 113 H 18 98 12/20/22 12:12 138 H 18 125/96 98 12/20/22 11:00 36.6 C 76 20 130/75 99 O2 Del Method 12/20/22 13:33 Room Air 12/20/22 12:41 Room Air 12/20/22 12:32 12/20/22 12:05 Room Air 12/20/22 12:12 Room Air 12/20/22 11:00 Room Air Recovery Score Activity: Moves 4 extremities Post Sedation Plan On clinical assessment, the patient appears to have tolerated the sedation without complications. Patient is recovering as anticipated. Patient will continue to be monitored by nursing and may be discharged when sedation discharge criteria are met per below protocol. Upon Completions of procedure up to 15 minutes continue every 5 minute vital signs and the P.A.R. score; then discharge to a Phase I or Fast Track to Phase II per the following guidelines: * Discharge Patient to appropriate Phase II area if PAR is 8 or greater or return to pre- procedure baseline. The post - procedure orders will be as directed. * If PAR score is less than 8 or not return to pre-procedure baseline then patient will follow Phase I monitoring till PAR is reached for Phase II. The Phase I may be done in procedure room or may call to secure a Phase I area. * If naloxone or flumazenil are used for reversal, hold in Phase I for continued monitoring from when last reversal dose was given for a minimum of 60 minutes or longer pending the nurse and/or physician discretion of patient condition before discharge to Phase II. Please call the Sedation Physician to re-evaluate and complete post-note for discharge to Phase II area. Do NOT discharge from procedure sedation or Phase 1 until post- sedation evaluation note is complete by procedure /sedation MD Sedation Discharge Instructions to be given to the patient at discharge to home.
--- NOTE | 2022-12-20 15:18 | Emergency Department Note ---
Pre Sedation Assessment Vital Signs Temp Pulse Pulse Resp BP BP Pulse Ox 12/20/22 13:33 115 H 18 121/80 99 12/20/22 12:41 12/20/22 12:32 86 12/20/22 12:05 113 H 18 98 12/20/22 12:12 138 H 18 125/96 98 12/20/22 11:00 36.6 C 76 20 130/75 99 O2 Del Method 12/20/22 13:33 Room Air 12/20/22 12:41 Room Air 12/20/22 12:32 12/20/22 12:05 Room Air 12/20/22 12:12 Room Air 12/20/22 11:00 Room Air Cardiovascular + tachycardic and + irregularly irregular Respiratory normal respiratory effort, lungs clear to auscultation Pre-Sedation Airway Assessment Smoking Status: Never smoker Hx Sleep Apnea: No Notes The planned sedation has been discussed with the patient. Informed Consent was obtained. I have identified the patient, determined the appropriateness of sedation and have assessed the patient immediately prior to the procedure. All medicine(s) and interventions are by my order.
--- NOTE | 2022-12-20 15:19 | Emergency Department Note ---
ED Visit Note Procedural Sedation Indication: sedation for cardioversion by cardiology. Total time: 15 minutes. Written consent was obtained after the risks and benefits were explained to the patient, including, but not limited to aspiration, allergic reaction, breathing difficulties, cardiac complications, vomiting, pain, event recall, bleeding, and/or infection. Pre-sedation examination and paperwork completed. Continous end tidal CO2 monitoring, pulse oximetry, and cardiac monitoring were utilized. Suction, airway equipment, medications, respiratory equipment, and appropriate personnel were prepared prior to the initiation of the procedure. A time out was taken. Sedation was achieved utilizing 70 mg of propofol. After I observed the patient had reached the appropriate level of sedation the main procedure was performed without complication. Sedation was discontinued and the monitoring continued. The patient recovered quickly from the effects of the medication without complication or adverse event. .
[2022-12-20] MEDS ORDERED: PROPOFOL IV STA (15:22)
--- NOTE | 2022-12-20 15:26 | Cardioversion ---
Date of Service December 20, 2022 Electrical Cardioversion Rpt Electrical Cardioversion Report Indications: Paroxysmal atrial fibrillation with rapid ventricular response Patient was seen and examined chart medications reviewed. Patient sedated by Dr Rosa with continuous O2, HR,BP monitoring Single synchronized electrical cardioverion performed using 200 J biphasic shock with successful conversion to sinus. Patient aroused, tolerated well. EKG Sinus with occasional PVC, rate 64 bpm QTC 480
--- NOTE | 2022-12-20 15:57 | Consultation ---
Date of Consultation December 20, 2022 Assessment & Plan (1) Atrial fibrillation with RVR: Patient is 57-year-old male with PMH atrial fibrillation anticoagulated on Xarelto, history of cardioversion, nonischemic cardiomyopathy with EF 40% on echo 10/2021 with EF 55% on echo 06/15, HTN presented to ER for atrial fibrillation RVR found at [facility] urgent care clinic today. History echo 06/05/22: EF: 55-59%, grade 2 diastolic dysfunction, mild MR Today in ER found to be in atrial fibrillation with rates up to 130s. BP stable. Patient is asymptomatic from atrial fibrillation. Denies palpitations, chest pain, shortness of breath In ER given diltiazem 20 mg IV. Heart rates remain in the 109 to 120s. Patient still asymptomatic Consulted cardiology, Dr. Lu. Recommends cardioversion In ER patient sedated and cardioversion took place. Patient back in sinus rhythm. Was recommended patient could be discharged home Continue Xarelto, sotalol (2) Abnormal laboratory test: Reported rash one week ago that resolved. Fatigue several days ago and past couple of days with diaphoresis. Lyme disease IgM Ab is equivocal Western blot pending Anaplasma smear and babesia smear negative Anaplasma and Babesia PCR pending Blood cultures pending Will need follow-up on blood culture results as well as pending Western blot, Anaplasma, Babesia labs Follow-up with PCP made on December 29, 2022 at [address] Leyva Patient will need to monitor temperatures for fever If no improvement or worsening to return to ER. (3) Hypertension: Continue lisinopril (4) Nonischemic cardiomyopathy: nonischemic cardiomyopathy with EF 40% on echo 10/2021 with EF 55% on echo 06/15, History of Present Illness Requesting Physician: Dr Rosa Reason for Consultation: Atrial fibrillation RVR Attending Physician: Dr Read History of Present Illness Patient is 57-year-old male with PMH atrial fibrillation anticoagulated on Xarelto, history of cardioversion, nonischemic cardiomyopathy with EF 40% on echo 10/2021 with EF 55% on echo 06/15, HTN presented to ER for atrial fibrillation RVR found that [facility] urgent care clinic today. Patient states 1 week ago had erythematous rash bilateral right ribs up to axilla. Patient states rash was not pruritic. He does report bilateral rib pain as well as back pain that day. He states he had a diffuse headache as well. Reports headache, rib and back pain and rash lasted 1 day and resolved. The following days he felt more fatigued which he initially thought was secondary to the heat and weather. Past 3 days he reports diffuse diaphoresis and soaking through shirts. He states was urged by co-worker to go to urgent care today because of the diaphoresis. He has not been checking his temperature. He denies any sensation of palpitations. Denies chest pain or shortness of breath. Denies any known tick bite. Reports drinking 28 ounces of coffee daily. Denies any other caffeine intake or other OTC medication. Denies alcohol use. Denies ill contacts. Denies N/V/D/C, dizziness, syncope, vision changes, neck pain, CP, SOB, orthopnea, cough, sore throat, otalgia, rhinorrhea, abdominal pain, paresthesias, extremity weakness, extremity edema, other rashes, urinary symptoms. History echo 06/05/22: EF: 55-59%, grade 2 diastolic dysfunction, mild MR Allergies Allergy/AdvReac Type Severity Reaction Status Date / Time Penicillins AdvReac Mild URINARY Verified 12/20/22 13:38 RETENTION/CONSTIPATION cefdinir AdvReac Diarrhea Verified 12/20/22 13:38 Home Medications Medication Instructions Recorded Confirmed Type Zinc Tab 30 mg PO DAILY 12/20/22 12/20/22 History ascorbic acid (vitamin C) 100 mg 200 mg PO DAILY 12/20/22 12/20/22 History tablet (Vitamin C) calcium carbonate 500 mg-vitamin 1 tab PO DAILY 12/20/22 12/20/22 History D3 5 mcg (200 unit) tablet (Calcium 500 + D) furosemide 20 mg tablet 40 mg PO DAILY 12/20/22 12/20/22 History glucosamine-chondroitin 250 mg-200 1 tab PO HS 12/20/22 12/20/22 History mg tablet (Osteo Bi-Flex) lisinopril 20 mg tablet 20 mg PO DAILY 12/20/22 12/20/22 History loratadine 10 mg tablet (Claritin) 10 mg PO DAILY PRN .allergies 12/20/22 12/20/22 History potassium 99 mg tablet 99 mg PO AMHS 12/20/22 12/20/22 History rivaroxaban 20 mg tablet (Xarelto) 20 mg PO DAILY 12/20/22 12/20/22 History sotalol 120 mg tablet 120 mg PO BID 12/20/22 12/20/22 History spironolactone 25 mg tablet 25 mg PO QAM 12/20/22 12/20/22 History vitamin B complex 1 tab PO DAILY 12/20/22 12/20/22 History vitamin E 268 mg (400 unit) capsule 400 mg PO DAILY 12/20/22 12/20/22 History Patient History Medical History Atrial fibrillation Hypertension Nonischemic cardiomyopathy Sensorineural hearing loss of both ears Surgical History H/O abdominal surgery H/O arthroscopy of right knee Family History Other Cancer Diabetes Social History Smoking Status: Never smoker Second Hand Exposure: No; Do You Dip or Chew Tobacco: No; Hx Alcohol Use: No Hx Substance Use: No Preferred Language: Nepali Communication Ability: Effective 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 Beliefs That Will Affect Care: None Current Living Situation: Family 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 Feels Safe at Home: Yes Review of Systems Review of Systems: All systems reviewed & are unremarkable except as noted in HPI & below Physical Exam Physical Exam: General: no distress, WDWN Head: normocephalic, atraumatic Eyes: conjunctiva non-injected, anicteric ENT: normal inspection external ears, nose, mucous membranes moist Neck: supple, trachea midline Lungs: clear, no respiratory distress, no wheezing/rhonchi/rales CV: irregularly irregular, rate 120, no murmur, no pretibial edema Abd: normal BS, soft, non-tender Ext: no cyanosis, no calf tenderness Neuro: A&O x 3, no focal deficits noted, normal affect Skin: warm, dry Results & Data Vital Signs (Past 12 Hours) Vital Signs Temp Pulse Pulse Resp BP BP Pulse Ox 12/20/22 15:29 68 12/20/22 15:45 68 17 111/67 96 12/20/22 15:40 69 20 110/64 95 12/20/22 15:30 67 18 114/73 98 12/20/22 15:25 69 18 111/63 96 12/20/22 15:20 6 L 16 114/67 99 12/20/22 15:15 130 H 18 129/68 98 12/20/22 15:12 127 H 18 140/78 96 12/20/22 13:33 115 H 18 121/80 99 12/20/22 12:41 12/20/22 12:32 86 12/20/22 12:05 113 H 18 98 12/20/22 12:12 138 H 18 125/96 98 12/20/22 11:00 36.6 C 76 20 130/75 99 O2 Del Method 12/20/22 15:29 12/20/22 15:45 Room Air 12/20/22 15:40 Room Air 12/20/22 15:30 Room Air 12/20/22 15:25 Room Air 12/20/22 15:20 Room Air 12/20/22 15:15 Room Air 12/20/22 15:12 Room Air 12/20/22 13:33 Room Air 12/20/22 12:41 Room Air 12/20/22 12:32 12/20/22 12:05 Room Air 12/20/22 12:12 Room Air 12/20/22 11:00 Room Air Laboratory Results Short CBC 12/20/22 Range/Units 11:53 WBC 5.17 (4.8-10.8) K/ul Hgb 14.0 (14.0-18.0) g/dl Hct 41.2 L (42.0-52.0) % Plt Count 137 (130-400) K/uL BMP 12/20/22 11:53 Sodium 137 Potassium 3.7 Chloride 105 Carbon Dioxide 25 BUN 22 Creatinine 0.77 Glucose 103 H Calcium 8.9 Liver Function 12/20/22 Range/Units 11:53 Total Bilirubin 0.8 (0.2-1.0) mg/dl AST 38 (13-39) U/L ALT 47 (7-52) U/L Alkaline Phosphatase 44 (34-104) U/L Albumin 3.7 (3.4-5.0) gm/dl Diagnostic Findings Chest X-Ray 12/20/22 11:10 SINGLE VIEW CHEST CLINICAL HISTORY: Headache. Diaphoresis. Atypical chest pain. Back pain. FINDINGS: 2 AP, portable, upright chest radiographs are compared to study dated 08/09/2016. The heart is enlarged. The pulmonary vasculature is noncongested. The lungs and pleural spaces are clear noting mild dependent atelectasis. No pneumothorax is seen. The bony thorax is grossly intact. IMPRESSION: Cardiomegaly with no acute cardiopulmonary abnormality. ACT 112: Negative or not required by law. Electronically signed by: Hal Wolf M.D. 12/20/2022 11:37 AM
--- NOTE | 2022-12-20 16:11 | Cardiology Consultation ---
Date of Consultation December 20, 2022 Assessment & Plan (1) Atrial fibrillation with RVR: Plan Patient is a 57-year-old male with known history of paroxysmal atrial fibrillation on antiarrhythmic therapy and chronic anticoagulation presents now feeling fatigued "like I had a bug" following a rash 1 week ago. Last 3 days noted excessive sweating with physical exertion but no other acute complaints. Not aware of arrhythmias but on presentation found to be in atrial fibrillation with rapid response. Last meal 3:30 AM today Otherwise feels well no electrolyte or laboratory anomaly other than equivocal Lyme screen Impression: Paroxysmal atrial fibrillation with recurrence. Will refer for synchronized electrical cardioversion today. Continue current dosing of sotalol and Xarelto Addendum synchronized electrical cardioversion performed with single 200 J biphasic shock with successful conversion to sinus rhythm. No QT prolongation Patient to be discharged later today with follow-up as outpatient as scheduled History of Present Illness Reason for Consultation: Atrial fibrillation with rapid response Requesting Physician: Dr. Rosa History of Present Illness Patient is a 57-year-old male whose ongoing cardiac issues are notable for 1. Paroxysmal atrial fibrillation on antiarrhythmic therapy with sotalol 2.Prior nonischemic cardiomyopathy, tachycardia induced with normalized LV systolic function 3. Hypertension Patient presented to the ER today for evaluation noting feeling "like he had a bug" for approximately 1 week, rash lasting 1 day 1 week ago. This last 3 days symptoms of marked diaphoresis with activity but no shortness of breath chest pain, dizziness syncope or near syncope. No sense of tachypalpitations Patient taking medications faithfully with no interruption in sotalol or Xarelto Allergies Allergy/AdvReac Type Severity Reaction Status Date / Time Penicillins AdvReac Mild URINARY Verified 12/20/22 13:38 RETENTION/CONSTIPATION cefdinir AdvReac Diarrhea Verified 12/20/22 13:38 Home Medications Medication Instructions Recorded Confirmed Type Zinc Tab 30 mg PO DAILY 12/20/22 12/20/22 History ascorbic acid (vitamin C) 100 mg 200 mg PO DAILY 12/20/22 12/20/22 History tablet (Vitamin C) calcium carbonate 500 mg-vitamin 1 tab PO DAILY 12/20/22 12/20/22 History D3 5 mcg (200 unit) tablet (Calcium 500 + D) furosemide 20 mg tablet 40 mg PO DAILY 12/20/22 12/20/22 History glucosamine-chondroitin 250 mg-200 1 tab PO HS 12/20/22 12/20/22 History mg tablet (Osteo Bi-Flex) lisinopril 20 mg tablet 20 mg PO DAILY 12/20/22 12/20/22 History loratadine 10 mg tablet (Claritin) 10 mg PO DAILY PRN .allergies 12/20/22 12/20/22 History potassium 99 mg tablet 99 mg PO AMHS 12/20/22 12/20/22 History rivaroxaban 20 mg tablet (Xarelto) 20 mg PO DAILY 12/20/22 12/20/22 History sotalol 120 mg tablet 120 mg PO BID 12/20/22 12/20/22 History spironolactone 25 mg tablet 25 mg PO QAM 12/20/22 12/20/22 History vitamin B complex 1 tab PO DAILY 12/20/22 12/20/22 History vitamin E 268 mg (400 unit) capsule 400 mg PO DAILY 12/20/22 12/20/22 History Patient History Medical History Atrial fibrillation Hypertension Nonischemic cardiomyopathy Sensorineural hearing loss of both ears Surgical History H/O abdominal surgery H/O arthroscopy of right knee Family History Other Cancer Diabetes Social History Smoking Status: Never smoker Second Hand Exposure: No; Do You Dip or Chew Tobacco: No; Hx Alcohol Use: No Hx Substance Use: No Preferred Language: Moroccan Communication Ability: Effective Document Control Coordinator Required: No Beliefs That Will Affect Care: None Current Living Situation: Family 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 Feels Safe at Home: Yes Review of Systems Review of Systems: All systems reviewed & are unremarkable except as noted in HPI & below Physical Exam Constitutional: WD/WN, vitals as above Eyes: PERRL, conjunctivae normal, anicteric sclerae ENMT: external ear and nose normal, oropharynx normal Neck: trachea midline, no thyromegaly Respiratory: normal respiratory effort, lungs clear to auscultation Cardiovascular: Rate/Rhythm: + irregularly irregular Heart Sounds: normal S1 and normal S2 Vessels: no JVD Extremities: no edema Gastrointestinal (Abdomen): normal bowel sounds, soft, nontender, no hepatosplenomegaly Musculoskeletal: no cyanosis or clubbing, extremities motor strength 5/5 Results & Data Vital Signs (Past 12 Hours) Vital Signs Temp Pulse Pulse Resp BP BP Pulse Ox 12/20/22 15:29 68 12/20/22 16:00 69 18 123/75 97 12/20/22 15:45 68 17 111/67 96 12/20/22 15:40 69 20 110/64 95 12/20/22 15:30 67 18 114/73 98 12/20/22 15:25 69 18 111/63 96 12/20/22 15:20 6 L 16 114/67 99 12/20/22 15:15 130 H 18 129/68 98 12/20/22 15:12 127 H 18 140/78 96 12/20/22 13:33 115 H 18 121/80 99 12/20/22 12:41 12/20/22 12:32 86 12/20/22 12:05 113 H 18 98 12/20/22 12:12 138 H 18 125/96 98 12/20/22 11:00 36.6 C 76 20 130/75 99 O2 Del Method 12/20/22 15:29 12/20/22 16:00 Room Air 12/20/22 15:45 Room Air 12/20/22 15:40 Room Air 12/20/22 15:30 Room Air 12/20/22 15:25 Room Air 12/20/22 15:20 Room Air 12/20/22 15:15 Room Air 12/20/22 15:12 Room Air 12/20/22 13:33 Room Air 12/20/22 12:41 Room Air 12/20/22 12:32 12/20/22 12:05 Room Air 12/20/22 12:12 Room Air 12/20/22 11:00 Room Air Laboratory Results Laboratory Results - last 24 hr 12/20/22 12/20/22 12/20/22 11:53 11:53 11:53 WBC 5.17 RBC 5.09 Hgb 14.0 Hct 41.2 L MCV 80.9 MCH 27.5 MCHC 34.0 RDW Std Deviation 36.9 RDW Coeff of Vijay 12.5 Plt Count 137 MPV 12.3 Neutrophils % (Manual) 52 Lymphocytes % (Manual) 26 Reactive Lymphs % (Man) 16 Monocytes % (Manual) 1 Eosinophils % (Manual) 3 Basophils % (Manual) 2 Metamyelocytes % (Man) 1 Neutrophils # (Manual) 2.69 Total Absolute Neuts 2.69 Lymphocytes # (Manual) 1.34 Reactive Lymphs # 0.83 Total Abs Lymphocytes 2.17 Monocytes # (Manual) 0.05 L Eosinophils # (Manual) 0.16 Basophils # (Manual) 0.10 Metamyelocytes # (Man) 0.05 H Ovalocytes 1+ PT INR APTT PTT Ratio Sodium Potassium Chloride Carbon Dioxide Anion Gap BUN Creatinine Est Cr Clr Drug Dosing Est GFR ( Amer) Est GFR (Non-Af Amer) BUN/Creatinine Ratio Glucose Lactate Calcium Magnesium Total Bilirubin AST ALT Alkaline Phosphatase Troponin I High Sens Total Protein Albumin Globulin Albumin/Globulin Ratio Procalcitonin 0.07 TSH Anaplasma Smear See Comment A. phagocytophilum DNA Pending Babesia Smear See Comment Babesia microti DNA PCR Lyme Disease IgG Ab Negative Lyme IgG (Western Blot) Lyme IgG 18 kDa Band Lyme IgG 23 kDa Band Lyme IgG 28 kDa Band Lyme IgG 30 kDa Band Lyme IgG 39 kDa Band Lyme IgG 41 kDa Band Lyme IgG 45 kDa Band Lyme IgG 58 kDa Band Lyme IgG 66 kDa Band Lyme IgG 93 kDa Band Lyme IgM Ab (WB) Lyme Disease IgM Ab Equivocal A Lyme IgM 23 kDa Band Lyme IgM 39 kDa Band Lyme IgM 41 kDa Band SARS-CoV-2, RNA, NAAT 12/20/22 12/20/22 12/20/22 11:53 11:53 11:53 WBC RBC Hgb Hct MCV MCH MCHC RDW Std Deviation RDW Coeff of Vijay Plt Count MPV Neutrophils % (Manual) Lymphocytes % (Manual) Reactive Lymphs % (Man) Monocytes % (Manual) Eosinophils % (Manual) Basophils % (Manual) Metamyelocytes % (Man) Neutrophils # (Manual) Total Absolute Neuts Lymphocytes # (Manual) Reactive Lymphs # Total Abs Lymphocytes Monocytes # (Manual) Eosinophils # (Manual) Basophils # (Manual) Metamyelocytes # (Man) Ovalocytes PT 13.9 H INR 1.3 H APTT 29.9 PTT Ratio 1.1 Sodium Potassium Chloride Carbon Dioxide Anion Gap BUN Creatinine Est Cr Clr Drug Dosing Est GFR ( Amer) Est GFR (Non-Af Amer) BUN/Creatinine Ratio Glucose Lactate 1.4 Calcium Magnesium Total Bilirubin AST ALT Alkaline Phosphatase Troponin I High Sens Total Protein Albumin Globulin Albumin/Globulin Ratio Procalcitonin TSH Anaplasma Smear A. phagocytophilum DNA Babesia Smear Babesia microti DNA PCR Pending Lyme Disease IgG Ab Lyme IgG (Western Blot) Lyme IgG 18 kDa Band Lyme IgG 23 kDa Band Lyme IgG 28 kDa Band Lyme IgG 30 kDa Band Lyme IgG 39 kDa Band Lyme IgG 41 kDa Band Lyme IgG 45 kDa Band Lyme IgG 58 kDa Band Lyme IgG 66 kDa Band Lyme IgG 93 kDa Band Lyme IgM Ab (WB) Lyme Disease IgM Ab Lyme IgM 23 kDa Band Lyme IgM 39 kDa Band Lyme IgM 41 kDa Band SARS-CoV-2, RNA, NAAT 12/20/22 12/20/22 12/20/22 11:53 11:53 11:53 WBC RBC Hgb Hct MCV MCH MCHC RDW Std Deviation RDW Coeff of Vijay Plt Count MPV Neutrophils % (Manual) Lymphocytes % (Manual) Reactive Lymphs % (Man) Monocytes % (Manual) Eosinophils % (Manual) Basophils % (Manual) Metamyelocytes % (Man) Neutrophils # (Manual) Total Absolute Neuts Lymphocytes # (Manual) Reactive Lymphs # Total Abs Lymphocytes Monocytes # (Manual) Eosinophils # (Manual) Basophils # (Manual) Metamyelocytes # (Man) Ovalocytes PT INR APTT PTT Ratio Sodium 137 Potassium 3.7 Chloride 105 Carbon Dioxide 25 Anion Gap 7 BUN 22 Creatinine 0.77 Est Cr Clr Drug Dosing 147.3 Est GFR ( Amer) 118.4 Est GFR (Non-Af Amer) 102.2 BUN/Creatinine Ratio 28.6 H Glucose 103 H Lactate Calcium 8.9 Magnesium 2.0 Total Bilirubin 0.8 AST 38 ALT 47 Alkaline Phosphatase 44 Troponin I High Sens 19.1 Total Protein 6.4 Albumin 3.7 Globulin 2.7 Albumin/Globulin Ratio 1.4 Procalcitonin TSH 0.767 Anaplasma Smear A. phagocytophilum DNA Babesia Smear Babesia microti DNA PCR Lyme Disease IgG Ab Lyme IgG (Western Blot) Pending Lyme IgG 18 kDa Band Pending Lyme IgG 23 kDa Band Pending Lyme IgG 28 kDa Band Pending Lyme IgG 30 kDa Band Pending Lyme IgG 39 kDa Band Pending Lyme IgG 41 kDa Band Pending Lyme IgG 45 kDa Band Pending Lyme IgG 58 kDa Band Pending Lyme IgG 66 kDa Band Pending Lyme IgG 93 kDa Band Pending Lyme IgM Ab (WB) Pending Lyme Disease IgM Ab Lyme IgM 23 kDa Band Pending Lyme IgM 39 kDa Band Pending Lyme IgM 41 kDa Band Pending SARS-CoV-2, RNA, NAAT 12/20/22 13:32 WBC RBC Hgb Hct MCV MCH MCHC RDW Std Deviation RDW Coeff of Vijay Plt Count MPV Neutrophils % (Manual) Lymphocytes % (Manual) Reactive Lymphs % (Man) Monocytes % (Manual) Eosinophils % (Manual) Basophils % (Manual) Metamyelocytes % (Man) Neutrophils # (Manual) Total Absolute Neuts Lymphocytes # (Manual) Reactive Lymphs # Total Abs Lymphocytes Monocytes # (Manual) Eosinophils # (Manual) Basophils # (Manual) Metamyelocytes # (Man) Ovalocytes PT INR APTT PTT Ratio Sodium Potassium Chloride Carbon Dioxide Anion Gap BUN Creatinine Est Cr Clr Drug Dosing Est GFR ( Amer) Est GFR (Non-Af Amer) BUN/Creatinine Ratio Glucose Lactate Calcium Magnesium Total Bilirubin AST ALT Alkaline Phosphatase Troponin I High Sens Total Protein Albumin Globulin Albumin/Globulin Ratio Procalcitonin TSH Anaplasma Smear A. phagocytophilum DNA Babesia Smear Babesia microti DNA PCR Lyme Disease IgG Ab Lyme IgG (Western Blot) Lyme IgG 18 kDa Band Lyme IgG 23 kDa Band Lyme IgG 28 kDa Band Lyme IgG 30 kDa Band Lyme IgG 39 kDa Band Lyme IgG 41 kDa Band Lyme IgG 45 kDa Band Lyme IgG 58 kDa Band Lyme IgG 66 kDa Band Lyme IgG 93 kDa Band Lyme IgM Ab (WB) Lyme Disease IgM Ab Lyme IgM 23 kDa Band Lyme IgM 39 kDa Band Lyme IgM 41 kDa Band SARS-CoV-2, RNA, NAAT NEGATIVE
--- NOTE | 2022-12-20 16:32 | Electrocardiogram Report ---
Test Reason : Blood Pressure : / mmHG Vent. Rate : 064 BPM Atrial Rate : 064 BPM P-R Int : 148 ms QRS Dur : 092 ms QT Int : 466 ms P-R-T Axes : 013 021 041 degrees QTc Int : 480 ms Sinus rhythm with occasional Premature ventricular complexes Otherwise normal ECG When compared with ECG of 20-DEC-2022 12:13, Sinus rhythm has replaced Atrial fibrillation Vent. rate has decreased BY 39 BPM Confirmed by Karlos Perry ([id number]) on 12/20/2022 4:31:55 PM Referred By: REFERRED SELF Confirmed By:Karlos Perry
--- NOTE | 2022-12-20 16:35 | Electrocardiogram Report ---
Test Reason : Blood Pressure : / mmHG Vent. Rate : 065 BPM Atrial Rate : 065 BPM P-R Int : 140 ms QRS Dur : 092 ms QT Int : 460 ms P-R-T Axes : 009 016 046 degrees QTc Int : 478 ms Sinus rhythm with occasional Premature ventricular complexes Cannot rule out Anterior infarct (cited on or before 20-DEC-2022) Abnormal ECG When compared with ECG of 20-DEC-2022 15:20, (unconfirmed) No significant change was found Confirmed by Karlos Perry ([id number]) on 12/20/2022 4:35:02 PM Referred By: REFERRED SELF Confirmed By:Karlos Perry
[2022-12-20] MEDS ORDERED: POLYETHYLENE (MIRALAX) 17 GM PACK PO PRN (18:42)
[2022-12-20] MEDS ORDERED: ACETAMINOPHEN 325 MG TAB PO PRN (18:42)
[2022-12-20] MEDS: SOTALOL HCL 80 MG TAB PO SCH (19:46)
[2022-12-20 20:38] LABS: Appearance Urine Clear (Clear); Bacteria Urine Automated Negative (Negative); Bilirubin Urine Negative (Negative); Blood Urine Negative (Negative); Color Urine Dark Yellow; Glucose Urine UA Negative (Negative); Ketones Urine 3+ (Negative); Leukocyte Esterase Urine Negative (Negative); Nitrite Urine Negative (Negative); Protein Urine Trace (Negative); Specific Gravity Urine 1.032 (1.000-1.030); Urobilinogen Urine Negative (Negative); pH Urine 5.5 (4.5-7.5)
[2022-12-21 07:31] LABS: Hemoglobin 12.9 g/dl (14.0-18.0); Mean Corpuscular Hemoglobin 27.7 pg (25.0-34.0); Mean Corpuscular Hgb Conc 34.9 g/dL (32.0-36.0); Mean Corpuscular Volume 79.6 fL (80.0-100.0); Mean Platelet Volume 12.1 fL (9.4-12.4); Platelet Count 134 K/uL (130-400); RDW Coefficient of Variation 12.9 % (11.5-14.5); RDW Standard Deviation 36.4 fL (36.4-46.3); Red Blood Count 4.65 M/uL (4.70-6.10); White Blood Count 5.42 K/ul (4.8-10.8)
[2022-12-21 07:51] LABS: BUN Creatinine Ratio 27.4 (10-20); Calcium 8.3 mg/dl (8.6-10.3); Creatinine Clr Calc Pharmacy 163.1 ml/min; Est GFR (Non-African American) 104.4 ml/min; Magnesium 2.2 mg/dl (1.7-2.4); Potassium 3.8 mmol/L (3.5-5.1)
[2022-12-21] MEDS: SOTALOL HCL 80 MG TAB PO SCH (07:52)
[2022-12-21 07:55] LABS: Basophils # (auto) 0.03 K/uL (0-0.2); Basophils % (auto) 0.6 %; Eosinophils # (auto) 0.09 K/uL (0-0.50); Eosinophils % (auto) 1.7 %; Immature Granulocytes # (auto) 0.05 K/uL (0.01-0.20); Immature Granulocytes % (auto) 0.9 %; Lymphocytes # (auto) 2.46 K/uL (1.2-3.4); Lymphocytes % (auto) 45.4 %; Monocytes # (auto) 0.53 K/uL (0.11-0.59); Monocytes % (auto) 9.8 %; Neutrophils # (auto) 2.26 K/uL (1.40-6.50); Neutrophils % (auto) 41.6 %
--- NOTE | 2022-12-21 08:36 | Electrocardiogram Report ---
Test Reason : Blood Pressure : / mmHG Vent. Rate : 060 BPM Atrial Rate : 060 BPM P-R Int : 152 ms QRS Dur : 096 ms QT Int : 484 ms P-R-T Axes : 020 034 045 degrees QTc Int : 484 ms Normal sinus rhythm Normal ECG When compared with ECG of 20-DEC-2022 16:24, Premature ventricular complexes are no longer Present Confirmed by Kosta Garcia ([id number]) on 12/21/2022 8:36:00 AM Referred By: REFERRED SELF Confirmed By:Kosta Garcia
[2022-12-21] MEDS ORDERED: lisinopril 20 MG TAB PO SCH (09:00)
[2022-12-21] MEDS ORDERED: SPIRONOLACTONE 25 MG TAB PO SCH (09:00)
[2022-12-21] MEDS ORDERED: RIVAROXABAN 20 MG TAB PO SCH (09:00)
[2022-12-21] MEDS ORDERED: FUROSEMIDE 40 MG TAB PO SCH (09:00)
--- NOTE | 2022-12-21 18:05 | Discharge Summary ---
Date of Service December 21, 2022 Admission HPI Per Admitting Provider Patient is 57-year-old male with PMH atrial fibrillation anticoagulated on Xarelto, history of cardioversion, nonischemic cardiomyopathy with EF 40% on echo 10/2021 with EF 55% on echo 06/15, HTN presented to ER for atrial fibrillation RVR found that [facility] urgent care clinic today. Patient states 1 week ago had erythematous rash bilateral right ribs up to axilla. Patient states rash was not pruritic. He does report bilateral rib pain as well as back pain that day. He states he had a diffuse headache as well. Reports headache, rib and back pain and rash lasted 1 day and resolved. The following days he fel t more fatigued which he initially thought was secondary to the heat and weather. Past 3 days he reports diffuse diaphoresis with activity. He states was urged by co-worker to go to urgent care today because of the diaphoresis. He has not been checking his temperature. He denies any sensation of palpitations. Denies chest pain or shortness of breath. Denies any known tick bite. Reports drinking 28 ounces of coffee daily. Denies any other caffeine intake or other OTC medication. Denies alcohol use. Denies ill contacts. Denies N/V/D/C, dizziness, syncope, vision changes, neck pain, CP, SOB, orthopnea, cough, sore throat, otalgia, rhinorrhea, abdominal pain, paresthesias, extremity weakness, extremity edema, other rashes, urinary symptoms. History echo 06/05/22: EF: 55-59%, grade 2 diastolic dysfunction, mild MR Admission Exam Per Admitting Provider General: no distress, WDWN Head: normocephalic, atraumatic Eyes: conjunctiva non-injected, anicteric ENT: normal inspection external ears, nose, mucous membranes moist Neck: supple, trachea midline Lungs: clear, no respiratory distress, no wheezing/rhonchi/rales CV: irregularly irregular, rate 120, no murmur, no pretibial edema Abd: normal BS, soft, non-tender Ext: no cyanosis, no calf tenderness Neuro: A&O x 3, no focal deficits noted, normal affect Skin: warm, dry Principal Diagnosis Paroxysmal A fib with RVR s/p cardioversion Discharge Exam General: Lying comfortably in bed, not in distress, on room air HEENT: EOMI, CONNOR, MMM Chest: Clear breath sounds bilaterally, no wheezes or crackles CVS: Regular but slightly bradycardic, normal heart sounds, no murmur Abdomen: Soft, non tender, not distended, normal bowel sounds Neuro: Awake, alert, oriented, conversing well, non focal Extremities: No cyanosis, clubbing or edema Discharge Data Allergies Allergy/AdvReac Type Severity Reaction Status Date / Time Penicillins AdvReac Mild URINARY Verified 12/20/22 13:38 RETENTION/CONSTIPATION cefdinir AdvReac Diarrhea Verified 12/20/22 13:38 Consultations 12/20/22 13:23 ED Decision to Admit Stat 12/20/22 18:42 Consult Cardiology Routine Ordered Studies Laboratory Results WBC 5.42 K/ul (4.8-10.8) 12/21/22 07:03 RBC 4.65 M/uL (4.70-6.10) L 12/21/22 07:03 Hgb 12.9 g/dl (14.0-18.0) L 12/21/22 07:03 Hct 37.0 % (42.0-52.0) L 12/21/22 07:03 MCV 79.6 fL (80.0-100.0) L 12/21/22 07:03 MCH 27.7 pg (25.0-34.0) 12/21/22 07:03 MCHC 34.9 g/dL (32.0-36.0) 12/21/22 07:03 RDW Std Deviation 36.4 fL (36.4-46.3) 12/21/22 07:03 RDW Coeff of Vijay 12.9 % (11.5-14.5) 12/21/22 07:03 Plt Count 134 K/uL (130-400) 12/21/22 07:03 MPV 12.1 fL (9.4-12.4) 12/21/22 07:03 Immature Gran % (Auto) 0.9 % 12/21/22 07:03 Neut % (Auto) 41.6 % 12/21/22 07:03 Lymph % (Auto) 45.4 % 12/21/22 07:03 Allen % (Auto) 9.8 % 12/21/22 07:03 Eos % (Auto) 1.7 % 12/21/22 07:03 Baso % (Auto) 0.6 % 12/21/22 07:03 Neut # (Auto) 2.26 K/uL (1.40-6.50) 12/21/22 07:03 Lymph # (Auto) 2.46 K/uL (1.2-3.4) 12/21/22 07:03 Allen # (Auto) 0.53 K/uL (0.11-0.59) 12/21/22 07:03 Eos # (Auto) 0.09 K/uL (0-0.50) 12/21/22 07:03 Baso # (Auto) 0.03 K/uL (0-0.2) 12/21/22 07:03 Immature Gran # (Auto) 0.05 K/uL (0.01-0.20) 12/21/22 07:03 Neutrophils % (Manual) 52 % 12/20/22 11:53 Lymphocytes % (Manual) 26 % 12/20/22 11:53 Reactive Lymphs % (Man) 16 % 12/20/22 11:53 Monocytes % (Manual) 1 % 12/20/22 11:53 Eosinophils % (Manual) 3 % 12/20/22 11:53 Basophils % (Manual) 2 % 12/20/22 11:53 Metamyelocytes % (Man) 1 % 12/20/22 11:53 Neutrophils # (Manual) 2.69 K/uL (1.40-6.50) 12/20/22 11:53 Total Absolute Neuts 2.69 K/uL (1.4-6.5) 12/20/22 11:53 Lymphocytes # (Manual) 1.34 K/uL (1.2-3.4) 12/20/22 11:53 Reactive Lymphs # 0.83 K/uL 12/20/22 11:53 Total Abs Lymphocytes 2.17 K/uL (1.2-3.4) 12/20/22 11:53 Monocytes # (Manual) 0.05 K/uL (0.11-0.59) L 12/20/22 11:53 Eosinophils # (Manual) 0.16 K/uL (0-0.50) 12/20/22 11:53 Basophils # (Manual) 0.10 K/uL (0-0.2) 12/20/22 11:53 Metamyelocytes # (Man) 0.05 K/uL (0-0) H 12/20/22 11:53 Ovalocytes 1+ 12/20/22 11:53 PT 13.9 Seconds (9.0-12.0) H 12/20/22 11:53 INR 1.3 (0.9-1.1) H 12/20/22 11:53 APTT 29.9 Seconds (21.0-31.0) 12/20/22 11:53 PTT Ratio 1.1 12/20/22 11:53 Sodium 136 mmol/L (136-145) 12/21/22 07:03 Potassium 3.8 mmol/L (3.5-5.1) 12/21/22 07:03 Chloride 105 mmol/L (98-107) 12/21/22 07:03 Carbon Dioxide 25 mmol/L (21-32) 12/21/22 07:03 Anion Gap 6 (3-11) 12/21/22 07:03 BUN 20 mg/dl (6-23) 12/21/22 07:03 Creatinine 0.73 mg/dl (0.6-1.4) 12/21/22 07:03 Est Cr Clr Drug Dosing 163.1 ml/min 12/21/22 07:03 Est GFR ( Amer) 121.0 ml/min 12/21/22 07:03 Est GFR (Non-Af Amer) 104.4 ml/min 12/21/22 07:03 BUN/Creatinine Ratio 27.4 (10-20) H 12/21/22 07:03 Glucose 96 mg/dl (70-99(Fasting)) 12/21/22 07:03 Lactate 1.4 mmol/L (0.4-2.0) 12/20/22 11:53 Calcium 8.3 mg/dl (8.6-10.3) L 12/21/22 07:03 Magnesium 2.2 mg/dl (1.7-2.4) 12/21/22 07:03 Total Bilirubin 0.8 mg/dl (0.2-1.0) 12/20/22 11:53 AST 38 U/L (13-39) 12/20/22 11:53 ALT 47 U/L (7-52) 12/20/22 11:53 Alkaline Phosphatase 44 U/L (34-104) 12/20/22 11:53 Troponin I High Sens 19.1 pg/ml (0-20) 12/20/22 11:53 Total Protein 6.4 gm/dl (6.0-8.3) 12/20/22 11:53 Albumin 3.7 gm/dl (3.4-5.0) 12/20/22 11:53 Globulin 2.7 gm/dl (2.5-4.0) 12/20/22 11:53 Albumin/Globulin Ratio 1.4 (0.9-2) 12/20/22 11:53 Procalcitonin 0.07 ng/ml (0-0.5) 12/20/22 11:53 TSH 0.767 uIu/ml (0.300-4.500) 12/20/22 11:53 Urine Color Dark Yellow 12/20/22 20:00 Urine Appearance Clear (Clear) 12/20/22 20:00 Urine pH 5.5 (4.5-7.5) 12/20/22 20:00 Ur Specific [place] 1.032 (1.000-1.030) H 12/20/22 20:00 Urine Protein Trace (Negative) H 12/20/22 20:00 Urine Glucose (UA) Negative (Negative) 12/20/22 20:00 Urine Ketones 3+ (Negative) H 12/20/22 20:00 Urine Blood Negative (Negative) 12/20/22 20:00 Urine Nitrite Negative (Negative) 12/20/22 20:00 Urine Bilirubin Negative (Negative) 12/20/22 20:00 Urine Urobilinogen Negative (Negative) 12/20/22 20:00 Ur Leukocyte Esterase Negative (Negative) 12/20/22 20:00 Urine WBC (Auto) 1-5 /hpf (0-5) 12/20/22 20:00 Urine RBC (Auto) 5-10 /hpf (0-4) H 12/20/22 20:00 U Hyaline Cast (Auto) 1-5 /lpf (0-5) 12/20/22 20:00 U Epithel Cells (Auto) 5-10 /lpf (0-5) H 12/20/22 20:00 Urine Bacteria (Auto) Negative (Negative) 12/20/22 20:00 Anaplasma Smear See Comment 12/20/22 11:53 Babesia Smear See Comment 12/20/22 11:53 Lyme Disease IgG Ab Negative (Negative) 12/20/22 11:53 Lyme Disease IgM Ab Equivocal (Negative) A 12/20/22 11:53 SARS-CoV-2, RNA, NAAT NEGATIVE (NEGATIVE) 12/20/22 13:32 Impressions Chest X-Ray 12/20/22 11:10 SINGLE VIEW CHEST CLINICAL HISTORY: Headache. Diaphoresis. Atypical chest pain. Back pain. FINDINGS: 2 AP, portable, upright chest radiographs are compared to study dated 08/09/2016. The heart is enlarged. The pulmonary vasculature is noncongested. The lungs and pleural spaces are clear noting mild dependent atelectasis. No pneumothorax is seen. The bony thorax is grossly intact. IMPRESSION: Cardiomegaly with no acute cardiopulmonary abnormality. ACT 112: Negative or not required by law. Electronically signed by: Hal Wolf M.D. 12/20/2022 11:37 AM Hospital Course (1) Atrial fibrillation with RVR: (2) Hypertension: (3) Nonischemic cardiomyopathy: Plan 57 year old male with h/o paroxysmal atrial fibrillation on Xarelto status post prior cardioversions presented to ED with atrial fibrillation with RVR. Patient was given IV diltiazem in the ED. Patient was seen by cardiology and underwent cardioversion with single 200 J biphasic shock with successful conversion to sinus rhythm, no QT prolongation. Recommended discharge from the ED and outpatient follow-up, however family was uncomfortable to discharge patient from the ED and recommended overnight observation. Uneventful hospital stay. He has remained in sinus rhythm in telemetry. Cleared by cardiology for discharge. No medications were changed. He will continue Xarelto and sotalol and follow-up with cardiology as outpatient. He is comfortable and stable for discharge home. Total Time Total Time Spent Total Time Spent (In Minutes): 35 Discharge Plan Discharge Items Patient Disposition: Home - Self-Care Reason For Visit: AFIB Discharge Diagnosis: Paroxysmal A fib with RVR s/p cardioversion Condition on Discharge: Good Activity: Resume your previous activity Non-emergency contact: Primary Care Provider Call non-emergency contact if: you have any medication questions and your symptoms worsen Follow-up/Referrals: Lexa Leyva MD [Primary Care Provider] - Diet: Heart Healthy Addtl Attending Provider Instructions: Continue your medications as prescribed. No medication changes were made Follow up with your family doctor and heart doctor Pending Studies at Discharge: Yes Studies:: blood clx Stand-Alone Forms: My [facility] [employer], Smoking Cessation Medications and DC Order Prescriptions: Continued lisinopril 20 mg tablet 20 mg PO DAILY sotalol 120 mg tablet 120 mg PO BID spironolactone 25 mg tablet 25 mg PO QAM Vitamin C 100 mg Tablet 200 mg PO DAILY Rx Instructions: Chewable vitamin B complex Tablet 1 tab PO DAILY furosemide 20 mg tablet 40 mg PO DAILY vitamin E 268 mg (400 unit) Capsule 400 mg PO DAILY loratadine [Claritin] 10 mg Tablet 10 mg PO DAILY PRN (Reason: .allergies) glucosamine-chondroitin [Osteo Bi-Flex] 250-200 mg Tablet 1 tab PO HS calcium carbonate-vitamin D3 [Calcium 500 + D] 500 mg-5 mcg (200 unit) Tablet 1 tab PO DAILY Xarelto 20 mg tablet 20 mg PO DAILY Zinc Tab 30 mg PO DAILY potassium 99 mg Tablet 99 mg PO AMHS Discharge Orders: Discharge Order (Routine); Ordered 12/21/22 Ordered By: Yves Tsang/Other Patient Handouts: [employer] Admission Data Admit Date/Time: 12/20/22 16:47 Attending Provider: Yves Lieberman Admit Provider: Damon Read Primary Care Provider: Lexa Leyva Other Providers: Oscar Lu ; Damon Read Other Interventions: Discharge Summary Assessment (RN) Last Done: 12/21/22 12:41
[2022-12-23 03:27] LABS: 18KDIGG Band NON-REACTIVE; 23KDIGG Band NON-REACTIVE; 23KDIGM Band NON-REACTIVE; 28KDIGG Band NON-REACTIVE; 30KDIGG Band NON-REACTIVE; 39KDIGG Band NON-REACTIVE; 39KDIGM Band NON-REACTIVE; 41KDIGG Band NON-REACTIVE; 41KDIGM Band NON-REACTIVE; 45KDIGG Band NON-REACTIVE; 58KDIGG Band NON-REACTIVE; 66KDIGG Band NON-REACTIVE; 93KDIGG Band NON-REACTIVE; Lyme Antibodies, WB IgG NEGATIVE (NEGATIVE); Lyme Antibodies, WB IgM NEGATIVE (NEGATIVE)
[2022-12-23 09:02] LABS: Babesia microti DNA Not Detected (Not Detected)
== END 2022-12-21 13:00 | disposition home or self-care (01) ==
LOC: ED 10:59 → 2N 10:59 → SUATTDRO 16:47 → 2N 18:33